=== PATIENT | female | born 2000 | race Caucasian/White ===

== ENCOUNTER 2024-10-03 21:48 | Emergency (ER) | payer OTHER ==
[~2024-10-03] VITALS: Ht 157.5 cm; Wt 80.0 kg
[~2024-10-03 21:48] MED LIST: ONDANSETRON ODT4 MG PO
[2024-10-03 23:14] LABS: BILIRUBIN, URINE NEGATIVE (negative); BLOOD/HGB, URINE LARGE (Negative); KETONE, URINE NEGATIVE (Negative); LEUK ESTERASE, URINE NEGATIVE (negative); NITRITE, URINE NEGATIVE (negative)
[2024-10-03 23:19] LABS: CRYSTALS, URINE CALCIUM OXALATE 1+ (0-1+); EPITHELIAL CELLS, URINE SQUAMOUS 2+ /lpf (0-1+); RED BLOOD CELLS, URINE >50 /hpf (0-5)
[2024-10-03 23:20] LABS: BACTERIA, URINE 1+ /hpf (negative); CASTS, URINE NONE SEEN \\lpf; COLLECTION TYPE, URINE CLEAN CATCH; REFLEX CULTURE, URINE No (No)
[2024-10-03 23:58] LABS: ALBUMIN 3.8 g/dL (3.4-5.0); ALBUMIN/GLOBULIN RATIO 1.12 (1.1-2.4); ANION GAP 13.2 (7-21); BILIRUBIN, TOTAL 0.3 mg/dL (0.2-1.0); BUN/CREATININE RATIO 9.85 (6.0-28.6); CREATININE, SERUM 0.71 mg/dL (0.55-1.02); POTASSIUM 3.2 mmol/L (3.5-5.1); PROTEIN, TOTAL 7.2 g/dL (6.4-8.2)
[2024-10-04 00:10] LABS: BASOPHILS 0.5 % (0-2); HEMATOCRIT 40.1 % (35.0-50.0); HEMOGLOBIN 13.9 g/dL (12.0-18.0); LYMPHOCYTES 39.5 % (24-44); MCH 30.7 (27-36); MCHC 34.6 g/dl (30-36); MCV 88.6 fl (81-99); MONOCYTES 7.1 % (0-12); NEUTROPHILS 50.9 % (39-80); PLATELET COUNT 202 K/uL (140-440); RBC 4.53 M/ul (4.3-5.7); RDW 13.3 (10.5-15.0)
[2024-10-04] MEDS ORDERED: ONDANSETRON ODT8 MG PO (00:32)
[2024-10-04] MEDS ORDERED: HYDROCODON-ACE1 EA10 PO (00:32)
[2024-10-04] MEDS ORDERED: ONDANSETRON 4 MG HOME.PACK SL ONE (00:45)
[2024-10-04] MEDS ORDERED: HYDROCODONE BIT/ACETAMINOPHEN 5/325 MG 1 TAB HOME.PACK PO ONE (00:45)
[2024-10-04 00:52] VITALS: BP 101/66
== END 2024-10-04 00:52 | disposition home or self-care (01) ==
LOC: ED 21:48
PROVIDERS: Family Medicine
DX: O03.9 Complete or unspecified spontaneous abortion without complication (principal); Z88.0 Allergy status to penicillin; Z91.041 Radiographic dye allergy status
CPT/HCPCS: 36415; 76801; 76817; 80053; 81001; 84702; 85025; 99284-25; A9270

== ENCOUNTER 2025-03-16 11:12 | Emergency (ER) | payer BC, OTHER ==
[~2025-03-16] VITALS: Ht 157.5 cm; Wt 84.6 kg
[~2025-03-16 11:12] MED LIST changes: +HYDROCODON-ACE1 EA10 PO; +ONDANSETRON ODT8 MG PO
[2025-03-16] MEDS ORDERED: PRENATAL 19 TA1 EAC2 PO (11:22)
[2025-03-16 13:37] VITALS: BP 114/72
--- NOTE | 2025-03-17 18:06 | EKG ---
[facility] [address] [facility] [place], [place] [address] Signed Normal sinus rhythm Possible Left atrial enlargement Borderline ECG No previous ECGs available Confirmed by JORDAN FERNANDEZ MD ([id number]) on 03/17/2025 6:06:42 PM Electronically Signed By: JORDAN FERNANDEZ 03/17/25 1806 PATIENT NAME: SYDNIE CHIANG EDD Electrocardiogram DATE OF : 89 PHYSICIAN: JORDAN FERNANDEZ REPORT #: [id number] REPORT IS CONFIDENTIAL AND NOT TO BE RELEASED WITHOUT AUTHORIZATION
== END 2025-03-16 13:38 | disposition home or self-care (01) ==
LOC: ED 11:12
DX: O9A.211 Injury, poisoning and certain other consequences of external causes complicating pregnancy, first trimester (principal); T75.4XXA Electrocution, initial encounter; W86.8XXA Exposure to other electric current, initial encounter; Z3A.13 13 weeks gestation of pregnancy; Z88.1 Allergy status to other antibiotic agents; Z88.0 Allergy status to penicillin
CPT/HCPCS: 93005; 93010; 99284